=== PATIENT | female | born 1990 | race Caucasian/White ===

== ENCOUNTER 2016-09-13 09:04 | Emergency (ER) | payer OTHER ==
[~2016-09-13] VITALS: Ht 157.5 cm; Wt 78.5 kg
[~2016-09-13 09:04] MED LIST: CIPR500T4 PO
[2016-09-13 09:08] VITALS: Ht 157.5 cm; Wt 78.5 kg
--- NOTE | 2016-09-13 09:49 | ERA ---
ER Documentation Chief Complaint Date/Time DATE: 09/13/16 TIME: 09:46 Chief Complaint RASHES ON UPPER TORSO HPI Patient is 26-year-old female presenting with a 1-2 month history of a pruritic rash covering the trunk. Patient has been seen by an urgent care and was given cortisone cream which helped clear up the lesions temporarily. After discontinuation the lesions reappear. Patient was also given hydroxyzine which improved the pruritus moderately. Patient has not been sexually active since eruptions. Patient is in a monogamous relationship for the past 6+ months. No known contacts have contracted the skin disorder. ROS All systems reviewed and are negative except as per history of present illness. Medications Home Meds Active Scripts Hydralazine Hcl* (Hydralazine Hcl*) 25 Mg Tab, 25 MG PO Q6H Y for PRURITUS, #60 TAB Prov:JOSE C BEDOYA PA-C 09/13/16 Ciprofloxacin Hcl* (Ciprofloxacin Hcl*) 500 Mg Tablet, 500 MG PO BID for 7 Days , TAB Prov:TRESA HEADLEY 02/10/15 Allergies Allergies: Coded Allergies: No Known Drug Allergy (Verified Allergy, Mild, 09/13/16) PMhx/Soc History of Surgery: No Anesthesia Reaction: No Hx Neurological Disorder: No Hx Respiratory Disorders: No Hx Cardiac Disorders: No Hx Psychiatric Problems: No Hx Miscellaneous Medical Probl: No Hx Alcohol Use: Yes (RARE OCCASION) Hx Substance Use: No Hx Tobacco Use: No Smoking Status: Never smoker Physical Exam Vitals Vital Signs Date Time Temp Pulse Resp B/P Pulse Ox O2 Delivery O2 Flow Rate FiO2 09/13/16 09:08 98.4 100 18 133/85 98 Physical Exam Const: Overweight 26-year-old female Head: Atraumatic Eyes: Normal Conjunctiva ENT: Normal External Ears, Nose and Mouth. Neck: Full range of motion..~ No meningismus. Resp: Clear to auscultation bilaterally Cardio: Regular rate and rhythm, no murmurs Abd: Soft, non tender, non distended. Normal bowel sounds Skin: Erythematous rash on the anterior and posterior trunk. Rash started with a 6-8 cm macule below the left scapula that was pink. Patient now has [id number] lesions covering the torso and proximal arms. Positive Hartwick tree pattern. Positive history of herald patch. the rash spares the hands and feet. Back: No midline or flank tenderness Ext: No cyanosis, or edema Neur: Awake and alert Psych: Normal Mood and Affect Results 24 hrs Laboratory Tests Test 09/13/16 09:45 Urine Color LT. YELLOW Urine Clarity CLEAR Urine pH 5.0 Urine Specific [place] >=1.030 Urine Ketones NEGATIVE Urine Nitrite NEGATIVE Urine Bilirubin NEGATIVE Urine Urobilinogen 0.2 E.U./dL Urine Leukocyte Esterase NEGATIVE Urine Hemoglobin NEGATIVE Urine Glucose NEGATIVE% Urine Total Protein NEGATIVE Procedures/MDM Patient is a 26-year-old female who presents complaining of a rash. 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 Patient describes rash as pruritic. The rash is sparing the hands and feet. There is a Hartwick pattern distribution. There is a history of a herald patch. Her patches seen on the skin beneath the lower left scapula and is roughly 5 cm and diameter. Most likely diagnosis at this time is pityriasis rosea. We will go ahead and get cultures for suspected disseminated gonococcal infection. Patient at this time has very low suspicion of GERD so we will hold off on antibiotics per patient's request. Departure Diagnosis: Primary Impression: Pityriasis rosea Condition: Stable Additional Instructions: Follow up with your PCP within the next 1-3 days for a more thorough evaluation and a possible referral to a specialist. Return the the emergency department immediately if symptoms worsen or change. If you have any questions regarding medications, ask your pharmacist or us before you leave. If any adverse reactions occur while taking your medications, discontinue the treatment and return to the emergency department immediately. Take your medications as directed, and complete the entire course of treatment. JOSE C BEDOYA PA-C Sep 13, 2016 09:49
[2016-09-13 10:36] LABS: ADD UMIC NO; URINE BILIRUBIN (Dip) NEGATIVE (NEGATIVE); URINE BLOOD (Dip) NEGATIVE (NEGATIVE); URINE COLOR LT. YELLOW (YELLOW); URINE GLUCOSE (Dip) NEGATIVE (NEGATIVE); URINE KETONES (Dip) NEGATIVE (NEGATIVE); URINE LEUKOCYTE ESTERASE (Dip) NEGATIVE (NEGATIVE); URINE NITRITE (Dip) NEGATIVE (NEGATIVE); URINE TOTAL PROTEIN (Dip) NEGATIVE (NEGATIVE); URINE UROBILINOGEN (Dip) 0.2 E.U./dL (0.1-1.0)
[2016-09-13] MEDS ORDERED: HYDR-3671 PO (11:28)
== END 2016-09-13 11:34 | disposition home or self-care (01) ==
LOC: FTE 09:04
DX: L42 Pityriasis rosea (principal)
CPT/HCPCS: 81003; 87591; 99283

== ENCOUNTER 2017-06-28 19:17 | Emergency (ER) | END 2017-06-28 21:45 | disposition home or self-care (01) ==